=== PATIENT | female | born 1945 | race Caucasian/White ===

== ENCOUNTER 2024-10-28 15:57 | Inpatient (IN) ==
--- NOTE | 2024-10-28 16:29 | Emergency Department Note ---
Impression & Plan Confusion, Dyspnea, COVID-19 ED Provider Note ED Provider Note NAME: WANDER LUNDY AGE:79 SEX: Female : 1945 ARRIVES VIA: private vehicle INFORMANT: Patient ED PROVIDER(s): Sheryl Blank DO CHIEF COMPLAINT: ams, dyspnea HPI: This is an 79 yo female who presents to the emergency department with her due to concern for creased confusion and shortness of breath over the last several days. states she began having some memory problems over the last 2 to 3 years however it seemed acutely worse over the last 2 to 3 days. He states lots of family came into town for the holiday weekend [place]. He denies any sick contacts or recent illness. No recent change in medication. No recent falls. He states that he also noticed her walking seemed more unsteady than normal. He states her appetite has seemed to be normal. He states she could not member whether she took medications. She could not remember where things were which is unusual for her. She denies headaches, chest pain, abdominal pain, change in bowel or bladder function. PAST MEDICAL HISTORY:See Below PAST SURGICAL HISTORY:See Below FAMILY HISTORY:See Below SOCIAL HISTORY:See Below HOME MEDICATIONS:See Below ALLERGIES:See Below VITALS:See Below PHYSICAL EXAMINATION: GENERAL: alert, well appearing, well nourished, no distress, non-toxic EYE EXAM: normal conjunctiva, PERRL and EOM's grossly intact OROPHARYNX: no exudate, no erythema, lips, buccal mucosa, and tongue normal and mucous membranes are moist NECK: supple, no nuchal rigidity, no adenopathy, non-tender LUNGS: Clear to auscultation. Normal chest wall mechanics, no w/r/r HEART: no murmurs, S1 normal and S2 normal ABDOMEN: abdomen soft, non-tender, normo-active bowel sounds, no masses, no rebound or guarding. BACK: Back is symmetrical on inspection and there is no deformity SKIN: no rashes, petechiae, orbruising UPPER EXTREMITIES: upper extremities are grossly normal. FROM, nml pulses b/l. LOWER EXTREMITIES: No pitting edema. FROM, nml pulses b/l. NEURO EXAM: Pleasantly confused - can answer basic question and ROS, cranial nerves II-XII grossly intact, normal speech, no facial droop,nogross weakness of arms, no gross weakness of legs. Gross sensation intact. No ataxia. Vital Signs: reviewed and remarkable Differential Diagnosis: CVA/TIA, ICH, JOSE ARMANDO, PNA, UTI, medication ADR, bacteremia/sepsis, occult trauma, hypoxia, hypercapnia, electrolyte abnormality, as well as others were considered MEDICAL DECISION MAKING: This is a 79-year-old female who presents emergency room with family due to concern for increased confusion, weakness, and unsteady gait. Patient was afebrile and hemodynamically stable. Labs drawn and sent, IV established, EKG and CXR performed and interpreted at bedside, and patient placed on telemetry. Patient sent for CT head, a nasal swab for viral respiratory panel was obtained and sent as well. Urine eventually collected and sent additionally. Patient started on gentle IV fluid hydration. Patient's labs and imaging reassuring. Nasal swab positive for COVID, UA abnormal additionally, and I discussed covering with antibiotics until culture could result with family who was in agreement. We discussed likely exposure at the recent family get together this past weekend. Given increased confusion and concern for safety given ambulatory dysfunction and unsteady gait, will discuss with hospitalist team for further inpatient management. Case discussed with Dr. Murray of the [facility] hospitalist team for additional inpatient evaluation and management. Consultation(s): 1914: Discussed with Dr. Murray, [place] hospitalist team, for additional evaluation. ER Treatment Provided: See below Diagnostics Interpreted By Me: -ECG: Normal sinus at 87, normal axis, normal intervals, no acute ST/T wave changes -Cardiac Monitoring: An order was placed for continuous cardiac monitoring. The monitor shows a rate of 70 with normal sinus rhythm. -Laboratory studies: As stated above and show below. -Imaging studies: X-ray Chest: A single view study of the chest was reviewed and was negative for cardiomegaly, focal infiltrate, effusion, pulmonary edema, or wide mediastinum. ct head: no ich Triage Nursing Note Reviewed Prior/Outside Records Reviewed Past Med/Surg History Problem List (Updated 10/29/24 @ 01:12 by Sheryl Blank DO) COVID-19 (Acute) Gait instability COVID-19 Encephalopathy acute Dyspnea (Acute) Confusion (Acute) Gastroesophageal reflux disease Hypertension Medical History Gastroesophageal reflux disease Hypertension Surgical History H/O right knee surgery History of ankle surgery Family History Mother Breast cancer Sister Breast cancer Denies family history of Ovarian cancer Prostate cancer Myocardial infarction Colorectal cancer Social History Smoking Status: Never smoker Second Hand Exposure: No; Do You Dip or Chew Tobacco: No; Tobacco Cessation Education Requested by Patient: No Hx Alcohol Use: Yes Hx Substance Use: No Preferred Language: Gabonese Communication Ability: Effective Research Development Manager Required: No Beliefs That Will Affect Care: None and Holiness Holiness Beliefs: latter-day Current Living Situation: Spouse Other Information That Helps Us Care for You: No Feels Safe at Home: Yes Safety Concerns: Feels Safe At This Time Assistive Devices: None Allergies Allergies Allergy/AdvReac Type Severity Reaction Status Date / Time No Known Allergies Allergy Verified 09/10/24 13:35 Home Meds Previous Rx's Medication Instructions Recorded aspirin 81 mg tablet 81 mg PO DAILY #30 tabs 09/10/24 cholecalciferol (vitamin D3) 50 50 mcg PO DAILY #30 caps 09/10/24 mcg (2,000 unit) capsule famotidine 20 mg tablet 20 mg PO DAILY #90 tabs 09/10/24 lisinopril 5 mg tablet 5 mg PO DAILY #90 tabs 09/10/24 nystatin-triamcinolone 100,000 1 applic topical DAILY PRN tinea 09/10/24 unit/g-0.1 % topical cream #30 grams omega-3 fatty acids 500 mg capsule 500 mg PO DAILY #30 caps 09/10/24 raloxifene 60 mg tablet (Evista) 60 mg PO DAILY #90 tabs 09/10/24 Results & Data (ED) Vital Signs Vital Signs - 24 hr 10/28/24 15:58 10/28/24 15:58 10/28/24 16:01 Temperature 37.6 C H Temperature Source Temporal Artery Scan Pulse Rate 100 H Pulse Rate [Apical] 87 Pulse Rate from SpO2 Sensor Pulse Rhythm [Apical] Regular Respiratory Rate 18 18 Respiratory Effort / Characteristics Non-Labored Non-Labored Non-Labored Respiratory Depth Normal Normal Normal Respiratory Pattern Regular Regular Regular Blood Pressure 150/85 H Blood Pressure [Right Arm] 164/84 H Blood Pressure Mean 106 Blood Pressure Mean [Right Arm] 110 Pulse Oximetry 96 95 Oxygen Delivery Method Room Air Room Air Room Air Sepsis Recent Fever Within 48 Hours No Sepsis New/Unexplained Change in Mental Status N/A Sepsis Action Taken by Nursing No Action Required 10/28/24 16:28 10/28/24 16:28 10/28/24 16:28 Temperature Temperature Source Pulse Rate Pulse Rate [Apical] Pulse Rate from SpO2 Sensor Pulse Rhythm [Apical] Respiratory Rate Respiratory Effort / Characteristics Respiratory Depth Respiratory Pattern Blood Pressure 164/84 H 164/84 H 164/84 H Blood Pressure [Right Arm] Blood Pressure Mean 110 110 110 Blood Pressure Mean [Right Arm] Pulse Oximetry Oxygen Delivery Method Sepsis Recent Fever Within 48 Hours Sepsis New/Unexplained Change in Mental Status Sepsis Action Taken by Nursing 10/28/24 16:28 10/28/24 16:31 10/28/24 16:33 Temperature Temperature Source Pulse Rate 87 88 Pulse Rate [Apical] Pulse Rate from SpO2 Sensor 91 H Pulse Rhythm [Apical] Respiratory Rate 14 Respiratory Effort / Characteristics Respiratory Depth Respiratory Pattern Blood Pressure 164/84 H Blood Pressure [Right Arm] Blood Pressure Mean 110 Blood Pressure Mean [Right Arm] Pulse Oximetry 96 Oxygen Delivery Method Sepsis Recent Fever Within 48 Hours Sepsis New/Unexplained Change in Mental Status Sepsis Action Taken by Nursing 10/28/24 17:02 10/28/24 17:09 10/28/24 17:15 Temperature Temperature Source Pulse Rate 87 86 Pulse Rate [Apical] Pulse Rate from SpO2 Sensor 89 86 Pulse Rhythm [Apical] Respiratory Rate 15 22 Respiratory Effort / Characteristics Respiratory Depth Respiratory Pattern Blood Pressure Blood Pressure [Right Arm] Blood Pressure Mean Blood Pressure Mean [Right Arm] Pulse Oximetry 97 94 Oxygen Delivery Method Room Air Sepsis Recent Fever Within 48 Hours Sepsis New/Unexplained Change in Mental Status Sepsis Action Taken by Nursing 10/28/24 17:33 10/28/24 17:45 10/28/24 18:00 Temperature Temperature Source Pulse Rate 87 87 Pulse Rate [Apical] Pulse Rate from SpO2 Sensor 87 Pulse Rhythm [Apical] Respiratory Rate 21 Respiratory Effort / Characteristics Respiratory Depth Respiratory Pattern Blood Pressure 174/89 H Blood Pressure [Right Arm] Blood Pressure Mean 127 Blood Pressure Mean [Right Arm] Pulse Oximetry 97 Oxygen Delivery Method Sepsis Recent Fever Within 48 Hours Sepsis New/Unexplained Change in Mental Status Sepsis Action Taken by Nursing 10/28/24 18:18 10/28/24 19:54 10/28/24 20:00 Temperature Temperature Source Pulse Rate 90 83 81 Pulse Rate [Apical] Pulse Rate from SpO2 Sensor 88 83 Pulse Rhythm [Apical] Respiratory Rate 22 15 19 Respiratory Effort / Characteristics Respiratory Depth Respiratory Pattern Blood Pressure 169/89 H 162/93 H Blood Pressure [Right Arm] Blood Pressure Mean 115 133 Blood Pressure Mean [Right Arm] Pulse Oximetry 97 95 96 Oxygen Delivery Method Room Air Room Air Sepsis Recent Fever Within 48 Hours Sepsis New/Unexplained Change in Mental Status Sepsis Action Taken by Nursing Laboratory Data 10/28/24 16:30 10/28/24 16:30 Lab Results 10/28/24 10/28/24 10/28/24 Range/Units 16:30 16:42 16:46 WBC 7.84 (4.8-10.8) K/ul RBC 4.48 (4.20-5.40) M/uL Hgb 14.3 (12.0-16.0) g/dl Hct 42.8 (37.0-47.0) % MCV 95.5 (80.0-100.0) fL MCH 31.9 (25.0-34.0) pg MCHC 33.4 (32.0-36.0) g/dL RDW Std Deviation 48.5 H (36.4-46.3) fL RDW Coeff of Julio 13.7 (11.5-14.5) % Plt Count 143 (130-400) K/uL MPV 9.9 (9.4-12.4) fL Immature Gran % (Auto) 0.3 % Neut % (Auto) 84.0 % Lymph % (Auto) 6.4 % [place] % (Auto) 8.3 % Eos % (Auto) 0.5 % Baso % (Auto) 0.5 % Neut # (Auto) 6.59 H (1.40-6.50) K/uL Lymph # (Auto) 0.50 L (1.20-3.40) K/uL [place] # (Auto) 0.65 H (0.11-0.59) K/uL Eos # (Auto) 0.04 (0.00-0.50) K/uL Baso # (Auto) 0.04 (0.00-0.20) K/uL Immature Gran # (Auto) 0.02 (0.01-0.20) K/uL PT 10.5 (9.0-12.0) Seconds INR 1.0 (0.9-1.1) Sodium 138 (136-145) mmol/L Potassium 4.0 (3.5-5.1) mmol/L Chloride 104 (98-107) mmol/L Carbon Dioxide 27 (21-32) mmol/L Anion Gap 7 (3-11) BUN 17 (6-23) mg/dl Creatinine 0.64 (0.6-1.2) mg/dl Est Cr Clr Drug Dosing 87.8 ml/min eGFR 89.28 BUN/Creatinine Ratio 26.6 H (10-20) Glucose 107 H (70-99(Fasting)) mg/dl Calcium 9.4 (8.6-10.3) mg/dl Magnesium 2.0 (1.7-2.4) mg/dl Total Bilirubin 0.5 (0.2-1.0) mg/dl AST 15 (13-39) U/L ALT 14 (7-52) U/L Alkaline Phosphatase 67 (34-104) U/L Troponin I High Sens 10.1 (0-14) pg/ml Total Protein 6.7 (6.0-8.3) gm/dl Albumin 3.8 (3.4-5.0) gm/dl Globulin 2.9 (2.5-4.0) gm/dl Albumin/Globulin Ratio 1.3 (0.9-2) Lipase 10 L (11-82) U/L TSH 0.533 (0.300-4.500) uIu/ml Urine Color Urine Appearance (Clear) Urine pH (4.5-7.5) Ur Specific [place] (1.000-1.030) Urine Protein (Negative) Urine Glucose (UA) (Negative) Urine Ketones (Negative) Urine Blood (Negative) Urine Nitrite (Negative) Urine Bilirubin (Negative) Urine Urobilinogen (Negative) Ur Leukocyte Esterase (Negative) Urine WBC (Auto) (0-5) /hpf Urine RBC (Auto) (0-2) /hpf U Hyaline Cast (Auto) (0-2) /lpf U Epithel Cells (Auto) (0-2) /hpf Urine Bacteria (Auto) (None Seen) Urine Comment Adenovirus (PCR) Not Detected (NotDetected) Anaplasma Smear See Comment Babesia Smear See Comment B. pertussis DNA (PCR) Not Detected (NotDetected) B.parapertussis DNA PCR Not Detected (NotDetected) Lyme Disease Screen Negative (Negative) C. pneumoniae DNA (PCR) Not Detected (NotDetected) Coronavirus OC43 (PCR) Not Detected (NotDetected) Coronavirus HKU1 (PCR) Not Detected (NotDetected) Coronavirus 229E (PCR) Not Detected (NotDetected) SARS-CoV-2 (PCR) DETECTED A (NotDetected) Coronavirus NL63 (PCR) Not Detected (NotDetected) Human Metapneumovir PCR Not Detected (NotDetected) Influenza Type A (PCR) Not Detected (NotDetected) Influenza Type B (PCR) Not Detected (NotDetected) M. pneumoniae (PCR) Not Detected (NotDetected) Parainfluenza 1 (PCR) Not Detected (NotDetected) Parainfluenza 2 (PCR) Not Detected (NotDetected) Parainfluenza 3 (PCR) Not Detected (NotDetected) Parainfluenza 4 (PCR) Not Detected (NotDetected) RSV (PCR) Not Detected (NotDetected) Entero/Rhino (PCR) Not Detected (NotDetected) 10/28/24 Range/Units 17:55 WBC (4.8-10.8) K/ul RBC (4.20-5.40) M/uL Hgb (12.0-16.0) g/dl Hct (37.0-47.0) % MCV (80.0-100.0) fL MCH (25.0-34.0) pg MCHC (32.0-36.0) g/dL RDW Std Deviation (36.4-46.3) fL RDW Coeff of Julio (11.5-14.5) % Plt Count (130-400) K/uL MPV (9.4-12.4) fL Immature Gran % (Auto) % Neut % (Auto) % Lymph % (Auto) % [place] % (Auto) % Eos % (Auto) % Baso % (Auto) % Neut # (Auto) (1.40-6.50) K/uL Lymph # (Auto) (1.20-3.40) K/uL [place] # (Auto) (0.11-0.59) K/uL Eos # (Auto) (0.00-0.50) K/uL Baso # (Auto) (0.00-0.20) K/uL Immature Gran # (Auto) (0.01-0.20) K/uL PT (9.0-12.0) Seconds INR (0.9-1.1) Sodium (136-145) mmol/L Potassium (3.5-5.1) mmol/L Chloride (98-107) mmol/L Carbon Dioxide (21-32) mmol/L Anion Gap (3-11) BUN (6-23) mg/dl Creatinine (0.6-1.2) mg/dl Est Cr Clr Drug Dosing ml/min eGFR BUN/Creatinine Ratio (10-20) Glucose (70-99(Fasting)) mg/dl Calcium (8.6-10.3) mg/dl Magnesium (1.7-2.4) mg/dl Total Bilirubin (0.2-1.0) mg/dl AST (13-39) U/L ALT (7-52) U/L Alkaline Phosphatase (34-104) U/L Troponin I High Sens (0-14) pg/ml Total Protein (6.0-8.3) gm/dl Albumin (3.4-5.0) gm/dl Globulin (2.5-4.0) gm/dl Albumin/Globulin Ratio (0.9-2) Lipase (11-82) U/L TSH (0.300-4.500) uIu/ml Urine Color Yellow Urine Appearance Clear (Clear) Urine pH 6.5 (4.5-7.5) Ur Specific [place] 1.023 (1.000-1.030) Urine Protein Negative (Negative) Urine Glucose (UA) Negative (Negative) Urine Ketones 2+ H (Negative) Urine Blood Trace H (Negative) Urine Nitrite Negative (Negative) Urine Bilirubin Negative (Negative) Urine Urobilinogen Negative (Negative) Ur Leukocyte Esterase 2+ H (Negative) Urine WBC (Auto) 21-50 H (0-5) /hpf Urine RBC (Auto) 6-10 H (0-2) /hpf U Hyaline Cast (Auto) 0-2 (0-2) /lpf U Epithel Cells (Auto) 0-2 (0-2) /hpf Urine Bacteria (Auto) None Seen (None Seen) Urine Comment Adenovirus (PCR) (NotDetected) Anaplasma Smear Babesia Smear B. pertussis DNA (PCR) (NotDetected) B.parapertussis DNA PCR (NotDetected) Lyme Disease Screen (Negative) C. pneumoniae DNA (PCR) (NotDetected) Coronavirus OC43 (PCR) (NotDetected) Coronavirus HKU1 (PCR) (NotDetected) Coronavirus 229E (PCR) (NotDetected) SARS-CoV-2 (PCR) (NotDetected) Coronavirus NL63 (PCR) (NotDetected) Human Metapneumovir PCR (NotDetected) Influenza Type A (PCR) (NotDetected) Influenza Type B (PCR) (NotDetected) M. pneumoniae (PCR) (NotDetected) Parainfluenza 1 (PCR) (NotDetected) Parainfluenza 2 (PCR) (NotDetected) Parainfluenza 3 (PCR) (NotDetected) Parainfluenza 4 (PCR) (NotDetected) RSV (PCR) (NotDetected) Entero/Rhino (PCR) (NotDetected) Administered Medications Famotidine (Famotidine 20 Mg Tab) 20 mg PO BID SCAR Stop: 11/27/24 22:14 Last Admin: 10/28/24 22:52 Dose: 20 mg Documented By: AVERY Parenteral Electrolytes (Plasma-Lyte A Ph 7.4) 1,000 mls @ 100 mls/hr IV .Q10H SCAR Stop: 10/31/24 20:14 Last Admin: 10/28/24 21:07 Dose: 100 mls/hr Documented By: AVERY Discontinued Medications Enoxaparin Sodium (Enoxaparin Inj 40 Mg/0.4 Ml Syr) 40 mg SQ NOW ONE Stop: 10/28/24 23:16 Last Admin: 10/28/24 23:35 Dose: Not Given Documented By: AVERY Sodium Chloride (Nss) 1,000 mls @ 125 mls/hr IV .Q8H SCAR Stop: 10/31/24 16:29 Last Infusion: 10/28/24 21:08 Dose: Infused Documented By: Infusion: 10/28/24 21:07 Dose: 0 mls/hr Documented By: Admin: 10/28/24 17:11 Dose: 125 mls/hr Documented By: maegan Ceftriaxone Sodium (Rocephin) 2,000 mg in 50 mls @ 100 mls/hr IV NOW STA Stop: 10/28/24 18:53 Last Infusion: 10/28/24 20:12 Dose: Infused Documented By: Admin: 10/28/24 18:38 Dose: 100 mls/hr Documented By: maegan Acetaminophen (Ofirmev) 1,000 mg in 100 mls @ 400 mls/hr IV NOW STA Stop: 10/28/24 19:26 Last Infusion: 10/28/24 20:18 Dose: Infused Documented By: Admin: 10/28/24 20:01 Dose: 400 mls/hr Documented By: AVERY Imaging Data Radiologist's Impression: Chest X-Ray 10/28/24 16:23 Clinical History: Weakness and confusion Technique: A frontal view of the chest was obtained Findings: There are no confluent pulmonary infiltrates. The heart size is within normal limits. No pleural effusion or pneumothorax is seen. There is no definite pulmonary nodule. No fracture is noted. No foreign body is seen Impression: No active disease Electronically signed by Chester Jerez 10-28-2024 4:[address] 10/28/24 16:23 Clinical History: Altered mental status Technique: Axial computed tomography images were obtained of the brain without intravenous contrast. Findings: There is diffuse cerebral atrophy, within expected limits for the patient's age. Areas of decreased attenuation are seen within the periventricular white matter, likely representing chronic small vessel ischemic disease. There is no definite sign of acute or old infarction. No intracranial hemorrhage is evident. No definite mass lesion is seen on this noncontrast examination. There is no midline shift or other form of herniation. No hydrocephalus is seen. No fracture is identified. The orbits and the visualized paranasal sinuses appear unremarkable. The mastoid air cells appear clear. Impression: 1. Cerebral atrophy and chronic small vessel ischemic disease 2. Otherwise unremarkable noncontrast CT of the brain Electronically signed by Chester Jerez 10-28-2024 5:14 PM Discharge Plan Visit Data Chief Complaint: Shortness of Breath/Dyspnea Stated Complaint: SOB, WEAKNESS, CONFUSION ED Provider: Sheryl Blank Discharge Problem: Confusion, Dyspnea, COVID-19 Patient Disposition: Being Evaluated by Hospitalist Condition: Fair Discharge Instructions Interventions: ED Discharge Assessment Last Done: 10/28/24 22:58
[2024-10-28 16:46] LABS: Hematocrit (blood only) 42.8 % (37.0-47.0); Hemoglobin 14.3 g/dl (12.0-16.0); Immature Granulocytes # (auto) 0.02 K/uL (0.01-0.20); Immature Granulocytes % (auto) 0.3 %; Mean Corpuscular Hemoglobin 31.9 pg (25.0-34.0); Mean Corpuscular Volume 95.5 fL (80.0-100.0); Platelet Count 143 K/uL (130-400); RDW Standard Deviation 48.5 fL (36.4-46.3); Red Blood Count 4.48 M/uL (4.20-5.40); White Blood Count 7.84 K/ul (4.8-10.8)
--- NOTE | 2024-10-28 16:46 | XRay Report ---
Clinical History: Weakness and confusion Technique: A frontal view of the chest was obtained Findings: There are no confluent pulmonary infiltrates. The heart size is within normal limits. No pleural effusion or pneumothorax is seen. There is no definite pulmonary nodule. No fracture is noted. No foreign body is seen Impression: No active disease Electronically signed by Chester Jerez 10-28-2024 4:46 PM
[2024-10-28 17:04] LABS: Alanine Aminotransferase 14.0 U/L (7-52); Albumin Globulin Ratio 1.3 (0.9-2); Alkaline Phosphatase 67.0 U/L (34-104); Anion Gap 7.0 (3-11); Bilirubin,Total 0.5 mg/dl (0.2-1.0); Blood Urea Nitrogen 17.0 mg/dl (6-23); Calcium 9.4 mg/dl (8.6-10.3); Carbon Dioxide 27.0 mmol/L (21-32); Chloride 104.0 mmol/L (98-107); Creatinine Clr Calc Pharmacy 87.8 ml/min; Globulin 2.9 gm/dl (2.5-4.0); Glucose 107.0 mg/dl (70-99(Fasting)); Lipase 10.0 U/L (11-82); Magnesium 2.0 mg/dl (1.7-2.4); Potassium 4.0 mmol/L (3.5-5.1); Sodium 138.0 mmol/L (136-145); Total Protein 6.7 gm/dl (6.0-8.3)
[2024-10-28] MEDS: SODIUM CHLORIDE 0.9% 1,000 ML IV SCH (17:11)
--- NOTE | 2024-10-28 17:15 | CT Scan Report ---
Clinical History: Altered mental status Technique: Axial computed tomography images were obtained of the brain without intravenous contrast. Findings: There is diffuse cerebral atrophy, within expected limits for the patient's age. Areas of decreased attenuation are seen within the periventricular white matter, likely representing chronic small vessel ischemic disease. There is no definite sign of acute or old infarction. No intracranial hemorrhage is evident. No definite mass lesion is seen on this noncontrast examination. There is no midline shift or other form of herniation. No hydrocephalus is seen. No fracture is identified. The orbits and the visualized paranasal sinuses appear unremarkable. The mastoid air cells appear clear. Impression: 1. Cerebral atrophy and chronic small vessel ischemic disease 2. Otherwise unremarkable noncontrast CT of the brain Electronically signed by Chester Jerez 10-28-2024 5:14 PM
[2024-10-28 17:17] LABS: INR 1.0 (0.9-1.1); Prothrombin Time 10.5 Seconds (9.0-12.0)
[2024-10-28 17:19] LABS: Thyroid Stimulating Hormone 0.533 uIu/ml (0.300-4.500)
[2024-10-28 17:45] LABS: Chlamydia pneumoniae PCR Not Detected (NotDetected); Coronavirus 229E PCR Not Detected (NotDetected); Coronavirus CoV-2 (COVID19)PCR DETECTED (NotDetected); Coronavirus HKU1 PCR Not Detected (NotDetected); Coronavirus NL63 PCR Not Detected (NotDetected); Coronavirus OC43PCR Not Detected (NotDetected); Human Metapneumovirus PCR Not Detected (NotDetected); Parainfluenza Virus 1 PCR Not Detected (NotDetected); Parainfluenza Virus 2 PCR Not Detected (NotDetected); Parainfluenza Virus 3 PCR Not Detected (NotDetected); Parainfluenza Virus 4 PCR Not Detected (NotDetected); Respiratory Syncytial VirusPCR Not Detected (NotDetected); Rhinovirus/Enterovirus PCR Not Detected (NotDetected)
[2024-10-28 18:19] LABS: Appearance Urine Clear (Clear); Bacteria Urine Automated None Seen (None Seen); Cast Urine Automated 0-2 /lpf (0-2); Epithelial Cell Urine Auto 0-2 /hpf (0-2); Glucose Urine UA Negative (Negative); WBC Urine Automated 21-50 /hpf (0-5)
[2024-10-28] MEDS: cefTRIAXone SODIUM 2,000 MG/50 ML BAG IV STA (18:38)
--- NOTE | 2024-10-28 18:40 | History & Physical Report ---
Date of Service October 28, 2024 Assessment & Plan (1) COVID-19: (2) Encephalopathy acute: (3) Hypertension: (4) Gait instability: Plan Niyah Lewis is an 79yo female with PMHx HTN, GERD, osteopenia, mixed stress/urge urinary incontinence brought in by and daughter for concern about acute worsening of forgetfulness, progression of shortness of breath on exertion with gait instability, being admitted for encephalopathy and acute worsening of physical activity intolerance in the setting of acute COVID-19 infection, requires admission for IV fluids while PO intake remakes below baseline and IV abx for suspected UTI based on positive UA. #Encephalopathy #COVID-19 #UA positive; urge/stress incontinence CT head 10/28/24 showing chronic small vessel microvascular ischemic disease and generalized atrophy but no acute pathology; no known history of stroke, TIA, VT, cardiovascular disease; no significant tobacco/smoking or alcohol history Acute change likely related to COVID-19 illness; no electrolyte abnormalities COVID precautions ordered Despite lack of severe disease features, pt does have COVID-related morbidity risk factors of age >60 and HTN As this is ~day 5 since symptom onset (initially 10/23 with headache and ear/neck pain), not very likely to benefit from Paxlovid per IDSA guidelines Possible contribution by UTI but this is less likely; UA positive with ketones, WBCs, and RBCs but pt is asymptomatic: no dysuria, no increased urinary frequency or urgency more than usual Empirically given a dose of IV ceftriaxone, likely able to discontinue prior to next dose Pending urine culture Consider adding medication for urge incontinence, however may defer to outpatient management No prior MMSE or MoCA performed per history, recommending this to be done as an outpatient as acute COVID-19 illness will likely interfere with accuracy of baseline results #SOB #Activity intolerance #Unsteady gait Chest XR 10/28/24 showing no acute pathology; subjective SOB likely related to COVID-19 illness; no clinical signs of congestive heart failure, no known history of asthma or other lung pathology No home O2 requirement and does not require supplemental O2 in ER as she's been satting mid-upper 90s on room air Does no meet criteria for IV steroids, however may offer duonebs as needed for SOB and O2 supplementation as needed Consider adding labs for vitamin B12 and folate deficiencies based on diet; MCV is normocytic but on the larger end of normal Please observe patient ambulation for proper documentation of gait PT/OT ordered As she is having minimal respiratory symptoms at this time, and seems as though symptoms have been going on for 1-1.5 years, would likely benefit from outpatient pulmonary function tests (PFTs) and high-resolution CT chest #Acute dehydration Decreased PO intake in the past week or so; elevated BUN:Cr - s/p NS at 125cc/hr, changed to plasmalyte 100cc/hr while PO intake remains low #HTN Takes lisinopril 5mg at home, increase while inpatient for elevated BP though asymptomatic - added hydralazine 5mg IV q6 prn for sBP >200 and/or dBP >110 #GERD continue famotidine, consider increasing to BID for improved symptom management chronic: osteopenia- continue raloxifene 60mg daily VTE ppx: lovenox, may discontinue once ambulating Dispo: med/surg History of Present Illness Primary Care Provider: Benjamín Freeman DO Niyah Lewis is an 79yo female with PMHx HTN, GERD, osteopenia, mixed stress/urge urinary incontinence brought in by and daughter for concern about acute worsening of altered mental status namely forgetfulness, additionally they note progression of shortness of breath on exertion with gait instability, being admitted for encephalopathy and acute worsening of physical activity intolerance likely related to COVID-19 infection. Acute illness: they note around last 10/23/24 she was having L ear pain and L neck pain, both of which have since resolved. She also endorses intermittent headache which has overall improved since L ear pain has improved. Pt notes she hasn't measured a fever, but has been having body aches. Denies any chest pain, vision changes, eye pain, sore throat, or difficulty swallowing. Additionally endorses cough which is nonproductive and worse in the morning, but seems mostly like her usual reflux-related cough. Mental status change: Chepe and daughter Trever help to provide history. They endorse she has been having trouble with word-finding intermittently over the past year or so. In the past week or so it has become more noticeable, forgetting what she had for breakfast and whether she had taken her pills. has been providing her pills, which he previously did not have to do. - when asked what her breakfast was this morning, she said "yogurt and raisin bran"- Chepe did not see her eat this but notes it is possible as they have both at home and does typically eat them. - denies pt having history of dementia or diagnosed cognitive decline, interested in pursuing a screening test - and daughter deny any history of stroke, TIA / "mini stroke", heart attack, or known cardiovascular disease Chepe and Trever deny any recent or significant falls, but they feel she has been rather unsteady on her feet. They also note she has been requiring a longer time than usual to go to the mailbox and back due to tiring out quickly. Home: lives with Chepe in 1-story home with 2-steps at entrance, no home health aides or other assistance - no supplemental O2, no ambulatory devices but considering a cane Allergies Allergy/AdvReac Type Severity Reaction Status Date / Time No Known Allergies Allergy Verified 09/10/24 13:35 Home Medications Medication Instructions Recorded Confirmed Type aspirin 81 mg tablet 81 mg PO DAILY #30 tabs 09/10/24 10/28/24 Rx cholecalciferol (vitamin D3) 50 50 mcg PO DAILY #30 caps 09/10/24 10/28/24 Rx mcg (2,000 unit) capsule famotidine 20 mg tablet 20 mg PO DAILY #90 tabs 09/10/24 10/28/24 Rx lisinopril 5 mg tablet 5 mg PO DAILY #90 tabs 09/10/24 10/28/24 Rx nystatin-triamcinolone 100,000 1 applic topical DAILY PRN tinea 09/10/24 10/28/24 Rx unit/g-0.1 % topical cream #30 grams omega-3 fatty acids 500 mg capsule 500 mg PO DAILY #30 caps 09/10/24 10/28/24 Rx raloxifene 60 mg tablet (Evista) 60 mg PO DAILY #90 tabs 09/10/24 10/28/24 Rx Past Med/Surg History Problem List COVID-19 (Acute) Gait instability COVID-19 Encephalopathy acute Dyspnea (Acute) Confusion (Acute) Gastroesophageal reflux disease Hypertension Surgical History History of ankle surgery H/O right knee surgery Family History Mother Breast cancer Sister Breast cancer Denies family history of Ovarian cancer Prostate cancer Myocardial infarction Colorectal cancer Social History Smoking Status: Never smoker Second Hand Exposure: No; Do You Dip or Chew Tobacco: No; Tobacco Cessation Education Requested by Patient: No Hx Alcohol Use: Yes Hx Substance Use: No Preferred Language: Greenlandic Communication Ability: Effective Marketing Operations Consultant Required: No Beliefs That Will Affect Care: None and Caodaism Caodaism Beliefs: sabianism Current Living Situation: Spouse Other Information That Helps Us Care for You: No Feels Safe at Home: Yes Safety Concerns: Feels Safe At This Time Assistive Devices: None Review of Systems Review of Systems: All systems reviewed & are unremarkable except as noted in HPI & below Physical Exam Physical Exam: Gen: A&Ox3, appearing in no acute distress, satting mid-upper 90s on room air HEENT: EOM intact, anicteric sclerae, PERRL b/l; L ear TM with mild erythema but no bulging or blood/effusion/perforation observed, R ear unremarkable to otoscopy CV: RRR, +s1/s2, no m/r/g, 2+ radial pulses b/lm 2+ posterior tibial pulses b/l Resp: clear to auscultation b/l, no wheeze/rales/rhonchi GI/Abd: +BS, distension or guarding, no tenderness to palpation MSK: 5/5 strength in b/l UE and LE, no pitting edema observed; distal lower ext slightly cool to touch; R dorsal great toe with ecchymosis and mild tenderness to palpation, no gross deformity Neuro: no facial droop, speech intact, no focal deficits, wiggles toes on command; slightly slow speech, some wordfinding difficulties but good coherency and fluency of speech - unable to assess gait at time of exami nation in ER room Psych: fair eye contact, mood-affect congruence Results & Data Results & Data Vital Signs (Past 12 Hours) Vital Signs Temp Pulse Pulse Resp BP BP Pulse Ox 10/28/24 18:18 90 22 97 10/28/24 18:00 174/89 H 10/28/24 17:45 87 10/28/24 17:33 87 21 97 10/28/24 17:15 86 22 94 10/28/24 17:09 87 15 97 10/28/24 17:02 10/28/24 16:33 88 14 96 10/28/24 16:31 87 10/28/24 16:28 164/84 H 10/28/24 16:28 164/84 H 10/28/24 16:28 164/84 H 10/28/24 16:28 164/84 H 10/28/24 16:01 37.6 C H 100 H 18 150/85 H 95 10/28/24 15:58 87 18 164/84 H 96 10/28/24 15:58 O2 Del Method 10/28/24 18:18 10/28/24 18:00 10/28/24 17:45 10/28/24 17:33 10/28/24 17:15 10/28/24 17:09 10/28/24 17:02 Room Air 10/28/24 16:33 10/28/24 16:31 10/28/24 16:28 10/28/24 16:28 10/28/24 16:28 10/28/24 16:28 10/28/24 16:01 Room Air 10/28/24 15:58 Room Air 10/28/24 15:58 Room Air Laboratory Results Laboratory Results WBC 7.84 K/ul (4.8-10.8) 10/28/24 16:30 RBC 4.48 M/uL (4.20-5.40) 10/28/24 16:30 Hgb 14.3 g/dl (12.0-16.0) 10/28/24 16:30 Hct 42.8 % (37.0-47.0) 10/28/24 16:30 MCV 95.5 fL (80.0-100.0) 10/28/24 16:30 MCH 31.9 pg (25.0-34.0) 10/28/24 16:30 MCHC 33.4 g/dL (32.0-36.0) 10/28/24 16:30 RDW Std Deviation 48.5 fL (36.4-46.3) H 10/28/24 16:30 RDW Coeff of Julio 13.7 % (11.5-14.5) 10/28/24 16:30 Plt Count 143 K/uL (130-400) 10/28/24 16:30 MPV 9.9 fL (9.4-12.4) 10/28/24 16:30 Immature Gran % (Auto) 0.3 % 10/28/24 16:30 Neut % (Auto) 84.0 % 10/28/24 16:30 Lymph % (Auto) 6.4 % 10/28/24 16:30 [place] % (Auto) 8.3 % 10/28/24 16:30 Eos % (Auto) 0.5 % 10/28/24 16:30 Baso % (Auto) 0.5 % 10/28/24 16:30 Neut # (Auto) 6.59 K/uL (1.40-6.50) H 10/28/24 16:30 Lymph # (Auto) 0.50 K/uL (1.20-3.40) L 10/28/24 16:30 [place] # (Auto) 0.65 K/uL (0.11-0.59) H 10/28/24 16:30 Eos # (Auto) 0.04 K/uL (0.00-0.50) 10/28/24 16:30 Baso # (Auto) 0.04 K/uL (0.00-0.20) 10/28/24 16:30 Immature Gran # (Auto) 0.02 K/uL (0.01-0.20) 10/28/24 16:30 PT 10.5 Seconds (9.0-12.0) 10/28/24 16:30 INR 1.0 (0.9-1.1) 10/28/24 16:30 Sodium 138 mmol/L (136-145) 10/28/24 16:30 Potassium 4.0 mmol/L (3.5-5.1) 10/28/24 16:30 Chloride 104 mmol/L (98-107) 10/28/24 16:30 Carbon Dioxide 27 mmol/L (21-32) 10/28/24 16:30 Anion Gap 7 (3-11) 10/28/24 16:30 BUN 17 mg/dl (6-23) 10/28/24 16:30 Creatinine 0.64 mg/dl (0.6-1.2) 10/28/24 16:30 Est Cr Clr Drug Dosing 87.8 ml/min 10/28/24 16:30 eGFR 89.28 10/28/24 16:30 BUN/Creatinine Ratio 26.6 (10-20) H 10/28/24 16:30 Glucose 107 mg/dl (70-99(Fasting)) H 10/28/24 16:30 Calcium 9.4 mg/dl (8.6-10.3) 10/28/24 16:30 Magnesium 2.0 mg/dl (1.7-2.4) 10/28/24 16:30 Total Bilirubin 0.5 mg/dl (0.2-1.0) 10/28/24 16:30 AST 15 U/L (13-39) 10/28/24 16:30 ALT 14 U/L (7-52) 10/28/24 16:30 Alkaline Phosphatase 67 U/L (34-104) 10/28/24 16:30 Troponin I High Sens 10.1 pg/ml (0-14) 10/28/24 16:30 Total Protein 6.7 gm/dl (6.0-8.3) 10/28/24 16:30 Albumin 3.8 gm/dl (3.4-5.0) 10/28/24 16:30 Globulin 2.9 gm/dl (2.5-4.0) 10/28/24 16:30 Albumin/Globulin Ratio 1.3 (0.9-2) 10/28/24 16:30 Lipase 10 U/L (11-82) L 10/28/24 16:30 TSH 0.533 uIu/ml (0.300-4.500) 10/28/24 16:30 Urine Color Yellow 10/28/24 17:55 Urine Appearance Clear (Clear) 10/28/24 17:55 Urine pH 6.5 (4.5-7.5) 10/28/24 17:55 Ur Specific [place] 1.023 (1.000-1.030) 10/28/24 17:55 Urine Protein Negative (Negative) 10/28/24 17:55 Urine Glucose (UA) Negative (Negative) 10/28/24 17:55 Urine Ketones 2+ (Negative) H 10/28/24 17:55 Urine Blood Trace (Negative) H 10/28/24 17:55 Urine Nitrite Negative (Negative) 10/28/24 17:55 Urine Bilirubin Negative (Negative) 10/28/24 17:55 Urine Urobilinogen Negative (Negative) 10/28/24 17:55 Ur Leukocyte Esterase 2+ (Negative) H 10/28/24 17:55 Urine WBC (Auto) 21-50 /hpf (0-5) H 10/28/24 17:55 Urine RBC (Auto) 6-10 /hpf (0-2) H 10/28/24 17:55 U Hyaline Cast (Auto) 0-2 /lpf (0-2) 10/28/24 17:55 U Epithel Cells (Auto) 0-2 /hpf (0-2) 10/28/24 17:55 Urine Bacteria (Auto) None Seen (None Seen) 10/28/24 17:55 Urine Comment 10/28/24 17:55 Adenovirus (PCR) Not Detected (NotDetected) 10/28/24 16:46 Anaplasma Smear See Comment 10/28/24 16:30 Babesia Smear See Comment 10/28/24 16:30 B. pertussis DNA (PCR) Not Detected (NotDetected) 10/28/24 16:46 B.parapertussis DNA PCR Not Detected (NotDetected) 10/28/24 16:46 Lyme Disease Screen Negative (Negative) 10/28/24 16:42 C. pneumoniae DNA (PCR) Not Detected (NotDetected) 10/28/24 16:46 Coronavirus OC43 (PCR) Not Detected (NotDetected) 10/28/24 16:46 Coronavirus HKU1 (PCR) Not Detected (NotDetected) 10/28/24 16:46 Coronavirus 229E (PCR) Not Detected (NotDetected) 10/28/24 16:46 SARS-CoV-2 (PCR) DETECTED (NotDetected) A 10/28/24 16:46 Coronavirus NL63 (PCR) Not Detected (NotDetected) 10/28/24 16:46 Human Metapneumovir PCR Not Detected (NotDetected) 10/28/24 16:46 Influenza Type A (PCR) Not Detected (NotDetected) 10/28/24 16:46 Influenza Type B (PCR) Not Detected (NotDetected) 10/28/24 16:46 M. pneumoniae (PCR) Not Detected (NotDetected) 10/28/24 16:46 Parainfluenza 1 (PCR) Not Detected (NotDetected) 10/28/24 16:46 Parainfluenza 2 (PCR) Not Detected (NotDetected) 10/28/24 16:46 Parainfluenza 3 (PCR) Not Detected (NotDetected) 10/28/24 16:46 Parainfluenza 4 (PCR) Not Detected (NotDetected) 10/28/24 16:46 RSV (PCR) Not Detected (NotDetected) 10/28/24 16:46 Entero/Rhino (PCR) Not Detected (NotDetected) 10/28/24 16:46 Impressions Chest X-Ray 10/28/24 16:23 Clinical History: Weakness and confusion Technique: A frontal view of the chest was obtained Findings: There are no confluent pulmonary infiltrates. The heart size is within normal limits. No pleural effusion or pneumothorax is seen. There is no definite pulmonary nodule. No fracture is noted. No foreign body is seen Impression: No active disease Electronically signed by Chester Jerez 10-28-2024 4:[address] 10/28/24 16:23 Clinical History: Altered mental status Technique: Axial computed tomography images were obtained of the brain without intravenous contrast. Findings: There is diffuse cerebral atrophy, within expected limits for the patient's age. Areas of decreased attenuation are seen within the periventricular white matter, likely representing chronic small vessel ischemic disease. There is no definite sign of acute or old infarction. No intracranial hemorrhage is evident. No definite mass lesion is seen on this noncontrast examination. There is no midline shift or other form of herniation. No hydrocephalus is seen. No fracture is identified. The orbits and the visualized paranasal sinuses appear unremarkable. The mastoid air cells appear clear. Impression: 1. Cerebral atrophy and chronic small vessel ischemic disease 2. Otherwise unremarkable noncontrast CT of the brain Electronically signed by Chester Jerez 10-28-2024 5:14 PM Supervising Physician Co-Signing Physician Notes Patient seen and examined, chart reviewed, case discussed with Dr. Ruffin and I agree with the assessment and plan as above. Patient presenting with Covid-19 infection. Encephalopathy Daughter expresses concern for possibly underlying cognitive decline as well as progressive SOB Labs and images reviewed Assessment/plan -Covid precautions - no indication at this time for supplemental O2 or steroids -Gentle IVF -Remainder as above Resident Activity Tracking Resident Involvement: Resident Care Provided Care Provided: Adult Hospital Medicine (3) Hypertension Hypertension type: unspecified Qualified Code(s): I10 - Essential (primary) hypertension
[2024-10-28] MEDS: ACETAMINOPHEN 1,000 MG/100 ML VIAL IV STA (20:01)
[2024-10-28] MEDS: PLASMA-LYTE A 1,000 ML IV SCH (21:07)
[2024-10-28] MEDS ORDERED: ALBUT/IPRATROP 3MG/0.5MG NEB 3 ML VIAL NEB PRN (21:55)
[2024-10-28] MEDS: FAMOTIDINE 20 MG TAB PO SCH (22:52)
[2024-10-28] MEDS ORDERED: MELATONIN 3 MG TAB PO PRN (22:58)
[2024-10-28] MEDS ORDERED: POLYETHYLENE (MIRALAX) 17 GM PACK PO PRN (22:58)
[2024-10-28] MEDS: ENOXAPARIN INJ 40 MG/0.4 ML SYR SQ ONE (23:35)
[2024-10-29] MEDS: ACETAMINOPHEN 325 MG TAB PO PRN (02:36)
[2024-10-29 03:04] VITALS: O2SAT 95
--- NOTE | 2024-10-29 03:47 | Billing Data ---
Date of Service October 28, 2024 Coding Level of Care Code 98445 INT INP/OBS CARE
[2024-10-29 06:55] LABS: Anion Gap 6.0 (3-11); Blood Urea Nitrogen 12.0 mg/dl (6-23); Calcium 8.7 mg/dl (8.6-10.3); Carbon Dioxide 26.0 mmol/L (21-32); Chloride 109.0 mmol/L (98-107); Creatinine Clr Calc Pharmacy 110.2 ml/min; Glucose 97.0 mg/dl (70-99(Fasting)); Potassium 3.7 mmol/L (3.5-5.1); Sodium 141.0 mmol/L (136-145)
[2024-10-29 07:39] VITALS: BP 149/70; PULSE 80; RESP 20; TEMP 100.6
[2024-10-29] MEDS: ASPIRIN 81 MG ECTAB PO SCH (09:14)
[2024-10-29] MEDS: CHOLECALCIFEROL 25 MCG (1000 UNITS) TAB PO SCH (09:14)
[2024-10-29] MEDS: OMEGA-3 (PURIFIED FISH OIL) 1 GM CAP PO SCH (09:15)
[2024-10-29] MEDS: RALOXIFENE HCL 60 MG TAB PO SCH (09:16)
[2024-10-29] MEDS: FAMOTIDINE 20 MG TAB PO SCH (09:16)
[2024-10-29 10:12] LABS: Hematocrit (blood only) 37.7 % (37.0-47.0); Hemoglobin 12.5 g/dl (12.0-16.0); Immature Granulocytes # (auto) 0.01 K/uL (0.01-0.20); Immature Granulocytes % (auto) 0.2 %; Mean Corpuscular Hemoglobin 31.7 pg (25.0-34.0); Mean Corpuscular Volume 95.7 fL (80.0-100.0); Platelet Count 139 K/uL (130-400); RDW Standard Deviation 50.3 fL (36.4-46.3); Red Blood Count 3.94 M/uL (4.20-5.40); White Blood Count 4.80 K/ul (4.8-10.8)
--- NOTE | 2024-10-29 12:46 | Electrocardiogram Report ---
Test Reason : Blood Pressure : */* mmHG Vent. Rate : 87 BPM Atrial Rate : 87 BPM P-R Int : 148 ms QRS Dur : 76 ms QT Int : 364 ms P-R-T Axes : * -15 -16 degrees QTcB Int : 438 ms Normal sinus rhythm possible Inferior infarct , age undetermined Abnormal ECG No previous ECGs available Confirmed by Jed Roberts ([id number]) on 10/29/2024 12:45:56 PM Referred By: REFERRED SELF Confirmed By: Jed Roberts
--- NOTE | 2024-10-29 15:47 | Discharge Summary ---
Discharge Summary Date of Service October 29, 2024 Principal Dx & Hospital Course #1 = Principal Diagnosis (1) COVID-19: (2) Encephalopathy acute: (3) Hypertension: (4) Gait instability: Plan Niyah Lewis is an 79 year old female admitted to [facility] from October 28 to 2024 due to altered mental status. She was diagnosed with mild COVID-19 which is likely the cause of the altered mental status which improved overnight with intravenous fluids. She continues to feel fatigued. Counter to her initial H&P I believe she is within the first 5 days of her illness therefore Paxlovid was prescribed to reduce the risk of severe disease. She has ongoing weakness from this but safe to return home with a wheeled walker to help with her mobility. Urine culture is still pending at discharge (pinpoint growth) however given the lack of symptoms and labs suggestive of this with her temperature 38.1 C I have a low suspicion this is causing her current illness. Notes For Next Care Provider Follow up urine culture - pin point growth present on discharge but low suspicion this is a true UTI, she received one dose of ceftriaxone in the emergency room Follow up weakness and confusion - may need physical therapy set up but case management will try to organize this for her to have at home tomorrow (patient discharged too late in the day to have this organized on day of discharge) Medication Changes From Visit [facility] for COVID-19 Admission HPI Per Admitting Provider Niyah Lewis is an 79yo female with PMHx HTN, GERD, osteopenia, mixed stress/urge urinary incontinence brought in by and daughter for concern about acute worsening of altered mental status namely forgetfulness, additionally they note progression of shortness of breath on exertion with gait instability, being admitted for encephalopathy and acute worsening of physical activity intolerance likely related to COVID-19 infection. Acute illness: they note around last 10/23/24 she was having L ear pain and L neck pain, both of which have since resolved. She also endorses intermittent headache which has overall improved since L ear pain has improved. Pt notes she hasn't measured a fever, but has been having body aches. Denies any chest pain, vision changes, eye pain, sore throat, or difficulty swallowing. Additionally endorses cough which is nonproductive and worse in the morning, but seems mostly like her usual reflux-related cough. Mental status change: Chepe and daughter Trever help to provide history. They endorse she has been having trouble with word-finding intermittently over the past year or so. In the past week or so it has become more noticeable, forgetting what she had for breakfast and whether she had taken her pills. has been providing her pills, which he previously did not have to do. - when asked what her breakfast was this morning, she said "yogurt and raisin bran"- Chepe did not see her eat this but notes it is possible as they have both at home and does typically eat them. - denies pt having history of dementia or diagnosed cognitive decline, interested in pursuing a screening test - and daughter deny any history of stroke, TIA / "mini stroke", heart attack, or known cardiovascular disease Chepe and Trever deny any recent or significant falls, but they feel she has been rather unsteady on her feet. They also note she has been requiring a longer time than usual to go to the mailbox and back due to tiring out quickly. Home: lives with Chepe in 1-story home with 2-steps at entrance, no home health aides or other assistance - no supplemental O2, no ambulatory devices but considering a cane Discharge Exam Constitutional WD/WN, vitals as above Respiratory normal respiratory effort, lungs clear to auscultation Cardiovascular RRR, no murmur, no edema Gastrointestinal (Abdomen) normal bowel sounds, soft, nontender, no hepatosplenomegaly Psychiatric A+Ox3, euthymic affect Discharge Plan Discharge Items Patient Disposition: Home - Home Health Services Reason For Visit: AMS, SOB Discharge Diagnosis: COVID-19 Condition on Discharge: Fair Activity: Resume your previous activity Non-emergency contact: Primary Care Provider Call non-emergency contact if: you have any medication questions and your symptoms worsen Follow-up/Referrals: Benjamín Freeman, [Primary Care Provider] - 11/04/24 9:20 am Diet: Regular Addtl Attending Provider Instructions: You were admitted to [facility] from October 28 to 2024 due to altered mental status. You were diagnosed with mild COVID-19 which is likely the cause of the altered mental status which improved overnight with intravenous fluids. Occupational Therapy recommend using a wheeled walker at this time therefore this is being prescribed for you. We will also prescribe Paxlovid to reduce the risk of severe disease which usually occurs 7 to 10 days after initial illness if indeed it occurs a total. If you do feel like you are getting worse recommend returning to the emergency room. Please follow-up with your primary care physician for any ongoing memory and weakness difficulties. Urine culture is still pending at discharge however given the lack of symptoms and labs suggestive of this with your temperature 38.1 C I have a low suspicion this is causing your current illness however you will be called if this is subsequently positive. Pending Studies at Discharge: Yes (Urine culture) Stand-Alone Forms: [facility], Smoking Cessation Medications and DC Order Prescriptions: New Paxlovid 300 mg (150 mg x 2)-100 mg tablets,dose pack See Rx Instructions .ROUTE .COMPLEX Qty: 30 0RF Rx Instructions: take TWO 150 mg tablets of nirmatrelvir with ONE 100 mg tablet of ritonavir twice daily for 5 days Continued aspirin 81 mg tablet 81 mg PO DAILY Qty: 30 2RF cholecalciferol (vitamin D3) 50 mcg (2,000 unit) capsule 50 mcg PO DAILY Qty: 30 0RF omega-3 fatty acids 500 mg capsule 500 mg PO DAILY Qty: 30 0RF famotidine 20 mg tablet 20 mg PO DAILY Qty: 90 3RF lisinopril 5 mg tablet 5 mg PO DAILY Qty: 90 3RF nystatin-triamcinolone 100,000-0.1 unit/g-% cream 1 applic topical DAILY PRN (Reason: tinea) Qty: 30 0RF raloxifene [Evista] 60 mg tablet 60 mg PO DAILY Qty: 90 3RF Discharge Orders: Discharge Order (Routine); Ordered 10/29/24 Ordered By: Carter Peck Admission Data Admit Date/Time: 10/28/24 20:07 Attending Provider: Carter Peck Admit Provider: Gilbert Ruffin V. Primary Care Provider: Benjamín Freeman Other Providers: Geneva Murray; [facility] Other Interventions: Discharge Summary Assessment (RN) Last Done: 10/29/24 16:29 Hospital Stay Data Consultations 10/28/24 19:15 ED Decision to Admit Stat Diagnostic Imagining Performed 10/28/24 16:23 CT head/brain wo con Stat Pending Results Patient Have Any Pending Studies at Discharge: Yes (Urine culture) Discharge Instructions Given to Patient (Per Discharging Provider) You were admitted to [facility] from October 28 to 2024 due to altered mental status. You were diagnosed with mild COVID-19 which is likely the cause of the altered mental status which improved overnight with intravenous fluids. Occupational Therapy recommend using a wheeled walker at this time therefore this is being prescribed for you. We will also prescribe Paxlovid to reduce the risk of severe disease which usually occurs 7 to 10 days after initial illness if indeed it occurs a total. If you do feel like you are getting worse recommend returning to the emergency room. Please follow-up with your primary care physician for any ongoing memory and weakness difficulties. Urine culture is still pending at discharge however given the lack of symptoms and labs suggestive of this with your temperature 38.1 C I have a low suspicion this is causing your current illness however you will be called if this is subsequently positive. Total Time Total Time Spent Total Time Spent (In Minutes): 45 Coding Level of Care Code 55200 INP/OBS DISCH >30 MIN Diagnoses COVID-19 U07.1 Encephalopathy acute G93.40 Hypertension, unspecified type I10 Hypertension type: unspecified Gait instability R26.81 Home Health Attestation I certify that this patient is under my care and that I, or a physicians assistant pressman working with me, had a face to-face encounter that meets the home health [id number] encounter requirements with this patient. The encounter with the patient was in whole, or in part, for the following medical condition, which is the primary reason for home health care (list medical condition): I certify that, based on my findings, the following services are medically necessary home health services: My clinical findings support the need for the above services because: Further, I certify that my clinical findings support that this patient is homebound (i.e. absences from home require considerable and taxing effort and are for medical reasons or christianity services or infrequently or of short duration when for other reasons) because: Certification for Home Health Services: Based on the above findings, I certify that this patient is confined to the home and needs intermittent chcf care, physical therapy and/or speech therapy or continues to need occupational therapy. The patient is under my care, and I have initiated the establishment of the plan of care. This patient will be followed by a physician who will periodically review the plan of care.
[2024-10-29] MEDS ORDERED: ENOXAPARIN INJ 40 MG/0.4 ML SYR SQ SCH (21:00)
--- NOTE | 2024-10-31 09:03 | Coding Query ---
CODING QUERY To promote full compliance with coding requirements relating to patient care, provider participation is requested in all cases of foreign language stenographer uncertainty. Please assist us with the question(s) below: Coding Question(s): Encephalopathy Acute is documented through the record. Please specify below, in your clinical opinion regarding Acute Encephalopathy: ( ) Acute Encephalopathy, Unspecified type ( X) Acute Encephalopathy, Specified type - Please Specify infectious Physician's Response(s): Thank you Clarisa Gordon Principal Diagnosis: "that condition established after study, to be chiefly responsible for occasioning the admission of the patient to the hospital for care." Co-Existing Principal Diagnosis: "when two or more diagnoses equally meet the criteria for principal diagnosis as determined by the circumstances of admission, diagnostic work up, and/or therapy provided, and the Alphabetic Index, Tabular List, or another coding guideline does not provide sequencing direction, any one of the diagnoses may be sequenced first." "When the physician has documented what appears to be a current diagnosis in the body of the record, but has not included the diagnosis in the final diagnostic statement, the physician should be asked whether the diagnosis should be added." (Source Coding Clinic 2 QTR90. p3-4) COURTNEY
== END 2024-10-29 17:02 | disposition home health service (06) | DRG 178 ==
LOC: ED 15:57 → EDINP 20:07 → SUATTDRO 20:07 → 2W 22:58